=== PATIENT | female | born 1970 | race Caucasian/White ===

== ENCOUNTER 2021-01-07 18:48 | Emergency (ER) | payer BC ==
[~2021-01-07] VITALS: Ht 152.4 cm; Wt 107.3 kg
[~2021-01-07 18:48] MED LIST: FOLIC ACID; LAMOTRIGINE; PRENATAL VITAMI1 TA5 PO; TYLENOL #3 301 UDTAB PO
[2021-01-07 21:03] VITALS: BP 144/64; PULSE 76; TEMP 98.4
== END 2021-01-07 21:05 | disposition home or self-care (01) ==
LOC: COL.ER 18:48
DX: S22.31XA Fracture of one rib, right side, initial encounter for closed fracture (principal); S60.221A Contusion of right hand, initial encounter; W10.8XXA Fall (on) (from) other stairs and steps, initial encounter
CPT/HCPCS: J1885

== ENCOUNTER 2021-12-31 06:31 | Day surgery (SDC) | payer BC ==
[~2021-12-31] VITALS: Ht 154.9 cm; Wt 91.7 kg
[2021-12-31 07:09] VITALS: BP 166/84; PULSE 91; TEMP 98.3
[2021-12-31] MEDS ORDERED: PLETAL 100MG T100 MG PO (07:14)
[2021-12-31] MEDS ORDERED: TRILEPTAL 300M300 MG PO (07:15)
[2021-12-31] MEDS ORDERED: LIPITOR 10MG10 MG PO (07:15)
[2021-12-31] MEDS ORDERED: TRILEPTAL600 MG PO (07:16)
[2021-12-31] MEDS ORDERED: NEXIUM 24HR20 M1 PO (07:16)
[2021-12-31 08:10] VITALS: BP 129/78; PULSE 72; TEMP 97
--- NOTE | 2021-12-31 08:13 | NUR ---
0810 - PT arrives from procedure w/ Padma LOPEZ, and was settled. Verbal report then obtained; Vitals obtained. PT has warm blankets and feet supported by chair. PT oriented to room and call weston, within reach. Visitor is present. PT requested a warm muffin and Diet Pepsi; denies nausea and pain. Will monitor per intervals.
[2021-12-31 08:25] VITALS: BP 136/89; PULSE 65
--- NOTE | 2021-12-31 08:25 | NUR ---
0825 - [facility]. PT continues to deny pain and nausea; no vomiting. PT had finished her muffin and continues to drink soda. PT expressed desire to be discharged. Call weston remains within reach if needed.
[2021-12-31 08:40] VITALS: BP 139/86; PULSE 68
--- NOTE | 2021-12-31 08:40 | NUR ---
VSS. IV discontinued. Catheter tip intact. Pressure bandage applied. NO redness or swelling noted and pressure bandage applied. DC instructions and edcuational material reviewed with the PT, who verbalized understanding and signed the related paperwork. Questions answered to PT satisfaction. PT refused RN assistance changing into personal clothes. Call weston remains within reach if needed. Awaiting DR to speak w/ PT.
--- NOTE | 2021-12-31 08:42 | NUR ---
is speaking w/ PT
--- NOTE | 2021-12-31 08:43 | NUR ---
PT dismissed from endo via wheelchair to the PT entrence by Bethany LOPEZ. PT has DC packet and personal belongings and was transferred into the care of Momo, who is driving private car.
== END 2021-12-31 08:45 | disposition home or self-care (01) ==
LOC: SDCO 06:31
DX: Z12.11 Encounter for screening for malignant neoplasm of colon (principal); K57.30 Diverticulosis of large intestine without perforation or abscess without bleeding; Z83.71 Family history of colonic polyps; Z80.0 Family history of malignant neoplasm of digestive organs; Z86.010 Personal history of colon polyps
CPT/HCPCS: J2704; J7120